=== PATIENT | female | born 1955 | race Caucasian/White ===

== ENCOUNTER 2017-08-12 13:55 | Emergency (ER) | payer SELFPAY ==
[2017-08-12 14:07] VITALS: BP 121/77
--- NOTE | 2017-08-12 14:37 | RAD ---
Indication: Left fifth digit injury. 3 views of left fifth digit demonstrates no fracture. No other bone or joint abnormality is noted. IMPRESSION: No fracture of the left fifth digit is noted.
--- NOTE | 2017-08-12 14:44 | UC ---
Hand/Wrist HPI - HPI Summary HPI Summary: PAIN LEFT PINKY X 1 DAY JAMMED HER LEFT 5TH FINGER AT WORK ONE DAY AGO + PAIN AND SWELLING OF THE FINGER - History Of Current Complaint Chief Complaint: UCUpperExtremity Stated Complaint: LEFT PINKY INJURY Time Seen by Provider: 08/12/17 14:16 Hx Obtained From: Patient Hx Last Menstrual Period: n/a ?: No Onset/Duration: Sudden Onset, Lasting Days - 1, Still Present Severity Initially: Moderate Severity Currently: Moderate Character Of Pain: Aching Aggravating Factor(s): Movement, Lifting, Flexion, Extension Alleviating Factor(s): Rest, Ice Associated Signs And Symptoms: Positive: Swelling. Negative: Redness, Bruising , Fever, Weakness, Numbness/Tingling, Other - Allergies/Home Medications Allergies/Adverse Reactions: Allergies Allergy/AdvReac Type Severity Reaction Status Date / Time Penicillins Allergy Intermediate Hives Verified 08/12/17 14:07 Bee Venom Allergy Anaphylatic Verified 08/12/17 14:08 Shock codiene Allergy Intermediate Hives Uncoded 08/12/17 14:07 Home Medications: Home Medications Albuterol HFA INHALER* [Ventolin HFA Inhaler*] 1 puff INH Q6H PRN 08/12/17 [ History Confirmed 08/12/17] PMH/Surg Hx/FS Hx/Imm Hx Previously Healthy: Yes - Surgical History Surgical History: Yes Surgery Procedure, Year, and Place: 2015 [place] - Family History Known Family History: Negative: Diabetes - Social History Alcohol Use: None Substance Use Type: None Smoking Status (MU): Never Smoked Tobacco - Immunization History Most Recent Influenza Vaccination: no Review of Systems Constitutional: Negative Skin: Negative Eyes: Negative ENT: Negative Respiratory: Negative Gastrointestinal: Negative Genitourinary: Negative Neurovascular: Negative Musculoskeletal: Arthralgia - LEFT 5TH FINGER Is Patient Immunocompromised?: No All Other Systems Reviewed And Are Negative: Yes Physical Exam Triage Information Reviewed: Yes Appearance: Well-Appearing, No Pain Distress, Well-Nourished Vital Signs: Initial Vital Signs Temp 98.4 F 08/12/17 14:01 Pulse 98 08/12/17 14:01 Resp 15 08/12/17 14:01 BP 121/77 08/12/17 14:01 Pulse Ox 98 08/12/17 14:01 Vital Signs Reviewed: Yes Eyes: Positive: Conjunctiva Clear ENT: Positive: Normal ENT inspection, Hearing grossly normal, Pharynx normal Neck: Positive: Supple, Nontender, No Lymphadenopathy Respiratory: Positive: Chest non-tender, Lungs clear, Normal breath sounds Cardiovascular: Positive: RRR, No Murmur, Pulses Normal Musculoskeletal: Positive: Other: - LEFT 5TH FINGER : + SWELLING, NO ERYTHEMA, NO ECCHYMOSIS, TENDERNESS AT PIP AND DIP , GOOD ROM , GOOD STRENGTH Hand/Wrist Course/Dx - Differential Dx/Diagnosis Provider Diagnoses: SPRAIN LEFT 5TH FINGER Discharge - Discharge Plan Condition: Stable Disposition: HOME Patient Education Materials: Jasmyn Lane (ED) Referrals: Alisa Matthews [Primary Care Provider] - If Needed
== END 2017-08-12 14:55 | disposition home or self-care (01) ==
LOC: UCCORT 13:55
DX: S63.617A Unspecified sprain of left little finger, initial encounter (principal); W23.0XXA Caught, crushed, jammed, or pinched between moving objects, initial encounter; Y93.9 Activity, unspecified; Y92.89 Other specified places as the place of occurrence of the external cause; Y99.0 Civilian activity done for income or pay; Z88.5 Allergy status to narcotic agent; Z88.0 Allergy status to penicillin; Z91.030 Bee allergy status
CPT/HCPCS: 73140; 99201; G0463

== ENCOUNTER 2017-12-23 09:11 | Emergency (ER) | payer OTHER ==
[2017-12-23 09:47] VITALS: BP 138/62
--- NOTE | 2017-12-23 10:07 | UC ---
Minor Trauma HPI - HPI Summary HPI Summary: right shoulder/ right wrist and right hip pain x 2 hrs s/p fall on ice this morning at her place of work injury to her right upper arm and shoulder, right wrist and right hip painful to move , - History of Current Complaint Chief Complaint: UCUpperExtremity Stated Complaint: WC-RT LEG/ARM INJURY Time Seen by Provider: 12/23/17 09:55 Hx Obtained From: Patient Hx Last Menstrual Period: n/a Onset/Duration: Sudden Onset, Lasting Hours - 2, Still Present Onset Of Pain: Immediate Severity Initially: Moderate Severity Currently: Moderate Pain Intensity: 6 Mechanism Of Injury: Fall From A Standing Position Aggravating Factor(s): Ambulation, Movement, Weight Bearing Alleviating Factor(s): Ice, Rest Associated Signs And Symptoms: Positive: Swelling - right hip - Allergies/Home Medications Allergies/Adverse Reactions: Allergies Allergy/AdvReac Type Severity Reaction Status Date / Time MS Bee Venom [Bee Venom] Allergy Anaphylatic Verified 08/12/17 14:08 Shock Penicillins Allergy Hives Verified 12/23/17 09:37 codiene Allergy Intermediate Hives Uncoded 08/12/17 14:07 PMH/Surg Hx/FS Hx/Imm Hx Cardiovascular History: Cardiac Disease - Surgical History Surgical History: Yes Surgery Procedure, Year, and Place: 2015 [place] - Family History Known Family History: Negative: Diabetes - Social History Alcohol Use: None Substance Use Type: None Smoking Status (MU): Never Smoked Tobacco - Immunization History Most Recent Influenza Vaccination: no Review of Systems Constitutional: Negative Skin: Negative Eyes: Negative ENT: Negative Respiratory: Negative Is Patient Immunocompromised?: No All Other Systems Reviewed And Are Negative: Yes Physical Exam Triage Information Reviewed: Yes Appearance: Well-Appearing, Pain Distress, Obese Vital Signs: Initial Vital Signs Temp 98.5 F 12/23/17 09:38 Pulse 71 12/23/17 09:38 Resp 12 12/23/17 09:38 BP 138/62 12/23/17 09:38 Pulse Ox 99 12/23/17 09:38 Eyes: Positive: Conjunctiva Clear ENT: Positive: Normal ENT inspection, Hearing grossly normal, Pharynx normal Neck exam: Normal Neck: Positive: Supple, Nontender, No Lymphadenopathy Respiratory: Positive: Chest non-tender, Lungs clear, Normal breath sounds, No respiratory distress Cardiovascular: Positive: RRR, No Murmur, Pulses Normal Abdominal Exam: Normal Abdomen Description: Positive: Nontender, Soft. Negative: CVA Tenderness (R), CVA Tenderness (L), Distended, Guarding Bowel Sounds: Positive: Present Musculoskeletal: Positive: Other: - right hip: + swelling, tenderness lateral hip, good ROM on flaxion , normal strength right wrist: mild swellin, good ROM , mild tednerenss , normal strength right shoulder: no swelling , no ecchymosis , + diffuse tenderness, normal ROM, normal strength right Minor Trauma Course/Dx - Differential Dx/Diagnosis Provider Diagnoses: contusion right shoulder. contusion right hip. contusion right wrist Discharge - Discharge Plan Condition: Stable Disposition: HOME Patient Education Materials: Contusion in Adults (ED), Hip Contusion (ED) Forms: *Work Release Referrals: Alisa Matthews [Primary Care Provider] - If Needed
== END 2017-12-23 10:06 | disposition home or self-care (01) ==
LOC: UCCORT 09:11
DX: S40.011A Contusion of right shoulder, initial encounter (principal); S70.01XA Contusion of right hip, initial encounter; S60.211A Contusion of right wrist, initial encounter; W00.0XXA Fall on same level due to ice and snow, initial encounter; Y93.9 Activity, unspecified; Y92.9 Unspecified place or not applicable
CPT/HCPCS: 99211; G0463